=== PATIENT | male | born 1945 | race Caucasian/White ===

== ENCOUNTER 2024-04-11 18:16 | Inpatient (IN) | payer OTHER, SELFPAY ==
[2024-04-11] VITALS (8 sets, daily range): BP systolic 95–123; BP diastolic 49–60; BMI 16.6; BMI 16.9
[2024-04-11 13:10] LABS: Glucose - Point of Care > 600 mg/dl (70-99)
[2024-04-11 13:36] LABS: % Basophils 0.3 % (0-2); % Eosinophils 0.2 % (0-6); % Immature Granulocytes 0.3 % (0-0.5); % Lymphocytes 10.4 % (20.5-51.1); % Monocytes 3.9 % (1.7-9.3); % Neutrophils 84.9 % (42.2-75.2); Absolute Lymphocytes 1.1 10^3/uL (1.2-3.4); Absolute Monocytes 0.4 10^3/uL (0.1-0.6); Absolute Neutrophils 8.7 10^3/uL (1.4-6.5); Hematocrit 38.1 % (39.0-52.0); Mean Corp Hgb Conc. 34.1 g/dL (33.0-37.0); Mean Corpuscular Hgb 32.8 pg (27.0-31.0); Mean Corpuscular Volume 96.2 fL (80.0-94.0); Mean Platelet Volume 9.5 fL (7.4-10.4); Nucleated Red Blood Cells % 0 % (-); Platelet Count 316 10^3/uL (130-400); Red Blood Cell Count 3.96 10^6/uL (4.70-6.10); Red Cell Dist. Width 12.2 % (11.5-14.5); White Blood Cell Count 10.2 10^3/uL (4.8-10.8)
[2024-04-11 13:47] LABS: ALT (SGPT) 27 U/L (0-50); AST (SGOT) 22 U/L (17-59); Albumin 4.3 g/dl (3.5-5.0); Alkaline Phosphatase 130 U/L (38-126); Blood Urea Nitrogen 21 mg/dl (9-20); Calcium 9.5 mg/dl (8.4-10.2); Carbon Dioxide 25 mmol/L (22-30); Chloride 93 mmol/L (98-107); Potassium 5.7 mmol/L (3.5-5.1); Sodium 131 mmol/L (135-145); Total Bilirubin 0.5 mg/dl (0.2-1.3); Total Protein 6.7 g/dl (6.3-8.2); eGFR > 60.00
[2024-04-11 14:04] LABS: Glucose 651 mg/dl (70-99)
[2024-04-11] MEDS: NSS 1000 IV ×3 (14:13→22:21)
[2024-04-11] MEDS: NOVOLIN R 10 UNITS IV (14:16)
[2024-04-11 14:34] LABS: Urine Albumin Negative (Neg - Trace); Urine Bilirubin Negative (Negative); Urine Character Clear (Clear); Urine Color Yellow; Urine Glucose 3+ (Negative); Urine Ketone 1+ (Negative); Urine Leukocyte Negative (Negative); Urine Nitrite Negative (Negative); Urine Occult Blood Negative (Negative); Urine Urobilinogen Negative (Neg - 1+)
--- NOTE | 2024-04-11 14:34 | PHANOTE ---
med rec note- [facility] [place] [facility], [facility] only fills 2/3 of patient medication. family in room does not have medication list. waiting 30 minutes [facility] did not get a hold of anybody. will
call back later
[2024-04-11 14:45] LABS: B-Hydroxybutyrate 0.84 mmol/L (0.02-0.27)
[2024-04-11 14:56] LABS: Venous Blood Gas B.E. -1.4 mmol/L (-4 to +4); Venous Blood Gas O2 Sat % 75.9 %; Venous Blood Gas pCO2 54 mmHg (35-48); Venous Blood Gas pH 7.29 (7.32-7.43); Venous Blood Gas pO2 45 mmHg (30-50)
[2024-04-11 15:22] LABS: Glucose - Point of Care 493 mg/dl (70-99)
[2024-04-11 15:56] LABS: Glucose 474 mg/dl (70-99)
--- NOTE | 2024-04-11 16:05 | ED.GENMED ---
History of Present Illness
General
Chief Complaint: Blood Sugar Problem
Source: patient and family
Exam Limitations: none
Time Seen by Provider: 04/11/24 13:53
Nursing documentation reviewed up to this point in time: agreed with
History of Present Illness
History of Present Illness:
78-year-old male presenting to the emergency department today with concerns of elevated sugar level that was seen as an outpatient with primary care doctor. Blood sugar read as high. He has had polydipsia polyuria some generalized fatigue. Has
not been checking his sugar levels recently. Does take oral meds as well as subcutaneous insulin.
Review of Systems
Review of Systems
Allergies reviewed?: Yes
All Other Systems: ROS reviewed and negative except as documented in HPI and ROS
Phy Exam
Physical Exam
Physical Exam:
GENERAL: Alert , in no apparent distress
EYE: pupils equal and reactive
NECK: Supple, no significant adenopathy.
ENT: o/p clr, mmm.
CARDIAC: Regular rate and rhythm .
LUNGS: Clear breath sounds bilaterally, no acute respiratory distress, no wheezes/rales/rhonchi
ABDOMEN: Soft, without focal tenderness, no r/g, no cvat
NEUROLOGICAL: Alert and oriented, no focal neuro deficits
SKIN: Warm and dry, skin intact.
MUSCULOSKELETAL: No edema, well perfused.
PSYCH: Normal and appropriate interaction.
Course
Orders/Labs/Results
Orders:
Orders
04/11/24 13:05
Accucheck Once [Bedside Glucose Monitoring-ONCE] As Directed
04/11/24 13:23
Complete Blood Count/With Diff Urgent
Comprehensive Metabolic Panel Urgent
04/11/24 13:53
0.9% Sodium Chloride 1000 ml [Nss] 1,000 ml IV BOLUS
04/11/24 14:11
Insulin Human Regular [Novolin R] 10 units IV NOW STA
04/11/24 14:14
B-Hydroxybutyrate Urgent
Venous Blood Gas Urgent
%Oxygen/Room Air: 98
04/11/24 14:24
Urinalysis Reflex To Culture Urgent
Date Specimen was Collected: 04/11/24
Time Specimen was Collected: 13:05
04/11/24 14:49
0.9% Sodium Chloride 1000 ml [Nss] 1,000 ml IV BOLUS
04/11/24 15:25
Glucose Urgent
Abnormal Lab Results
04/11/24 04/11/24 04/11/24
13:09 13:23 14:14
RBC 3.96 L 10^6/uL
(4.70-6.10)
Hct 38.1 L %
(39.0-52.0)
MCV 96.2 H fL
(80.0-94.0)
MCH 32.8 H pg
(27.0-31.0)
Absolute Neuts (auto) 8.7 H 10^3/uL
(1.4-6.5)
Absolute Lymphs (auto) 1.1 L 10^3/uL
(1.2-3.4)
Neutrophils % 84.9 H %
(42.2-75.2)
Lymphocytes % 10.4 L %
(20.5-51.1)
VBG pH 7.29 L
(7.32-7.43)
VBG pCO2 54 H mmHg
(35-48)
Sodium 131 L mmol/L
(135-145)
Potassium 5.7 H mmol/L
(3.5-5.1)
Chloride 93 L mmol/L
(98-107)
BUN 21 H mg/dl
(9-20)
Glucose 651 H* mg/dl
(70-99)
Alkaline Phosphatase 130 H U/L
(38-126)
Urine Ketones
Urine Glucose
B-Hydroxybutyrate 0.84 H mmol/L
(0.02-0.27)
POC Glucose > 600 H* mg/dl
(70-99)
04/11/24 04/11/24 04/11/24
14:24 15:20 15:25
RBC
Hct
MCV
MCH
Absolute Neuts (auto)
Absolute Lymphs (auto)
Neutrophils %
Lymphocytes %
VBG pH
VBG pCO2
Sodium
Potassium
Chloride
BUN
Glucose 474 H* mg/dl
(70-99)
Alkaline Phosphatase
Urine Ketones 1+ A
(Negative)
Urine Glucose 3+ A
(Negative)
B-Hydroxybutyrate
POC Glucose 493 H* mg/dl
(70-99)
04/11/24 13:23
04/11/24 15:25
Vital Signs
Initial and Last Documented VS:
Initial Vital Signs
Temp Pulse Resp BP Pulse Ox
98.5 F 85 16 102/56 98
04/11/24 13:07 04/11/24 13:07 04/11/24 13:07 04/11/24 13:07 04/11/24 13:07
Last Documented Vital Signs
Temp Pulse Resp BP Pulse Ox
98.5 F 74 18 102/56 96
04/11/24 13:07 04/11/24 14:45 04/11/24 14:48 04/11/24 13:07 04/11/24 14:45
MDM/Problems Addressed
MDM/Problems Addressed:
78-year-old male presenting to the emergency department today with concerns of elevated sugar level. Does have a history of diabetes. Has not been checking sugars routinely and apparently is somewhat noncompliant with medication regimen. Here the
sugar level is above 600 on initial stick, the chemistry showing initial sugar level in the 600s. Patient with an altered beta hydroxybutyrate and slightly low pH concerning the patient was given insulin as well as 2 L of fluid. Some improvement
of the sugar level into the 490s plan to admit for monitoring considering slightly acidotic here. Otherwise stable.
*Critical Care Note
Total Time (30-74mins, 75-104mins- exclusive of procedures): Not Applicable
ED Attending Note
-
Portions of this chart may have been created with voice recognition software.� Occasional wrong word or��sound alike� substitutions may have occurred due to the inherent limitations of voice recognition software.
Discharge Plan
Departure
Patient Disposition: Admit
Date of Disposition: 04/11/24
Time of Disposition: 16:07
Admit to: Telemetry
Admit to doctor: Samsony
Presentation/result/management discussed w/ accepting MD/DO: Hospitalist
Patient with high blood pressure during this ER visit?: No
Condition: Good
Covid-19: Not Applicable
Discharge Problem:
Hyperglycemia
Prescriptions:
No Action
lisinopril 20 mg Tablet
20 mg PO DAILY
glimepiride 2 mg Tablet
2 mg PO DAILY
simvastatin [Zocor] 20 mg Tablet
20 mg PO QPM
sertraline 25 mg Tablet
25 mg PO DAILY
omeprazole 20 mg Tablet,Delayed Release (Dr/Ec)
20 mg PO DAILY
Jardiance 25 mg Tablet
25 mg PO DAILY
Theragen Tablet
1 tab PO DAILY
aspirin 81 mg Tablet,Delayed Release (Dr/Ec)
81 mg PO DAILY
Referrals:
Rikki Martinez PA-C [Family Provider] -
Interventions
Interventions:
*Risk Screen - Suicide Last Done: 04/11/24 14:10
*General Assessment Last Done: 04/11/24 14:10
*Neglect/Abuse Screening Last Done: 04/11/24 14:10
ED- Fall Risk Assessment Last Done: 04/11/24 14:13
*ED COVID-19 Vaccine History Last Done: 04/11/24 14:10
ED- Neurological Assessment Last Done: 04/11/24 14:11
Discharge Date and Time
Print Language: [place]
[2024-04-11 16:28] LABS: Glucose - Point of Care 350 mg/dl (70-99)
--- NOTE | 2024-04-11 16:42 | W.PN.UPDATE ---
Update Note
Progress Note Update
I personally performed a history and physical exam of the patient and discussed management with the resident. I reviewed the resident's note and agree with the documented findings and plan of care HPI/CC except for Changes in my documentation
78-year-old male presented with elevated blood sugar. He was seen by PCP he had polyuria and polydipsia. He has not been checking his blood sugars as outpatient.
CVS: S1-S2 normal
Chest: CTA B/L
Abdomen: Soft, NT
Extremities: No edema, No ulcers
# Hyperglycemia
Was on Glimepiride , Jardiance as OP- Hold Glimeperide
Likely hyperosmolar hyperglycemic syndrome
Mildly elevated beta hydroxybutyrate likely secondary to this
Insulin gtt
Follow sugars with hourly accu checks
Check Hb A1C
Dietary eval
#Spurious Hyponatremia-Will correct with Correction of sugars
#Hyperkalemia -Due to Hyperglycemia- repeat
#HTN- Continue Lisinopril
#Depression- Zoloft to be continued
#Hyperlipidemia- Continue Statin
#Possible Cognitive Dysfunction- Needs OP eval
#Severe hearing impairment
#Active smoker Cessation counselling
#DVT Prophylaxis- Lovenox
#CODE STATUS- DNR per D/W and son at bed side
D/W and son at bed side
--- NOTE | 2024-04-11 17:57 | HPS.HSE ---
Family Physician
-
Family Physician: Rikki Martinez
Chief Complaint
-
Hyperglycemia/HHS
History of Present Illness
Troy Diggs is a 78 yo male with a past medical history of Type II Diabetes Mellitus and Hypertension who presented to the ED after an outpatient blood test revealed an elevated blood glucose of 584.
Patient had blood work done for supervisor lime and the PCP noticed the blood glucose was 584 and informed the patient to come to the emergency department. The patient states that he is very thirsty, very hungry, and has to use the bathroom often.
and son who were at bedside endorse the same. The patient states that these symptoms have been presented for months. He endorses compliance with oral medication and SC Lantus of 22U at night. The patient snacks frequently. He is not
experiencing any nausea, vomiting, abdominal pain, shortness of breath, chest pain, numbness/tingling of the extremities.
and son also endorse a two year history of mild behavioral changes. The patient's memory is intact, but he does not seem to 'care' as much as before; 'he is not my partner anymore.'
They follow regularly with an Traveling Auditor, a Pad Hand (due for yearly check up), and an Branch Office Administrator (patient is waiting for BL Cataract surgery). PCP is Dr. Rikki Martinez.
PMHx: as above
Allergies: None
Medication: Aspirin, Jardiance, Glimepiride, Lantus 22U HS, Lisinopril, omeprazole, simvastatin, Sertraline (mood swings)
Surgical History: none
Social History: Lives at home with and son. He has a 20 pack year smoking history and has not had a drink in over 20 years. He does not use illicit drugs.
ROS: as above
Medical History
Past Medical History
Past Medical History: Reports HTN and IDDM
Past Surgical History: Reports None
Social History
Unable to obtain full social history at this time due to: Other (Hearing impaired)
Tobacco: Smoker
Alcohol: Former (Last drink 20 years ago)
Drug: None
Personal:
Living: With Family
Employment: Not Employed (Stopped working 2 years ago)
Family History
Family History: Not pertinent
Allergies / Home Medications
Allergies reflects when Allergies were last updated in [employer].
Home Medications with original date entered in [employer]
Allergy/Medication List:
None
Review of Systems
-
History Source: Patient and Family
A 12 point ROS was completed and negative except as noted: Yes
Constitutional: Reports Weight Loss
EENT: Reports No Symptoms
Respiratory: Reports No Symptoms
Cardiac: Reports No Symptoms
Abdomen/GI: Reports No Symptoms
: Reports No Symptoms
Musculoskeletal: Reports No Symptoms
Skin: Reports No Symptoms
Neurological: Reports No Symptoms
Endocrine: Reports Polyuria, Polydipsia and Other (Polyphagia)
Hematologic/Lymphatic: Reports No Symptoms
Psych: Reports No Symptoms
Physical Exam
Vital Signs
Vital Signs
Temp Pulse Resp BP Pulse Ox
98.5 F 74 18 102/56 96
04/11/24 13:07 04/11/24 14:45 04/11/24 14:48 04/11/24 13:07 04/11/24 14:45
Physical Exam
General: Well Developed, Well Nourished, No Apparent Distress and Comfortable
HEENT: NormoCephalic, Anicteric, Moist mucous membranes, PERRLA and [place] Conjunctivae
Respiratory: Clear
Cardiac: S1/S2, Regular Rhythm and Murmur (Systolic murmur w/o radiation to the carotids)
Breast: N/A
GI: Soft, Non Tender, Non Distended and Normal Bowel Sounds
Genito-urinary: Deferred by me
Musculoskeletal: No Clubbing, No Cyanosis, No Edema and Normal Gait & Station
Neuro: Awake, Alert, Oriented, No Motor Deficits and No Sensory Deficits
Psych: Calm
Laboratory Results
-
04/11/24 13:23
04/11/24 15:25
Laboratory Results
Total Bilirubin 0.5 mg/dl (0.2-1.3) 04/11/24 13:23
AST 22 U/L (17-59) 04/11/24 13:23
ALT 27 U/L (0-50) 04/11/24 13:23
Alkaline Phosphatase 130 U/L (38-126) H 04/11/24 13:23
Impression/Plan
-
78 yo male with a past medical history of Insulin Dependent Type II Diabetes and Hypertension who presented to the ED after an outpatient blood test revealed elevated glucose
##HHS
#Insulin Dependent Type II Diabetes Mellitus
- Glucose >600 on admission, pH 7.29, mild ketonuria, B-hydroxybutyrate 0.84, Na 131 (corrected 137), K 5.7, polyuria, polydipsia, polyphagia
- Given 1L NS IVF & 10U Lantus; glucose reduced to 136
- Held Glimepiride, continued Jardiance, Simvastatin
- Will give another 10U novolog with dinner
#HTN
- Blood pressure stable on admission
- C/w Lisinopril
#Suspected Cognitive Dysfunction
#Mood swings?
- Patient's family at bedside, endorses some change in behavior/mood over the last 2 years.
- Patient is stable, cooperative, and non-aggressive
- Can consider out patient workup for possible early dementia
- Will continue home sertraline for now
#Dispo
Med/Surg
DVT PPx: Lovenox 40 SC
Diet: NPO until sugars stabilize
CODE STATUS: DNR
[2024-04-11 18:23] LABS: Glucose - Point of Care 136 mg/dl (70-99)
[2024-04-11 18:33] LABS: Vitamin B12 679 pg/ml (239-931)
[2024-04-11 20:24] LABS: Glucose - Point of Care 168 mg/dl (70-99)
[2024-04-11] MEDS: NOVOLOG FLEXPEN 4 UNITS SC (20:30)
[2024-04-11 21:54] LABS: Glucose - Point of Care 95 mg/dl (70-99)
[2024-04-11] MEDS: LIPITOR 10 MG PO (22:19)
[2024-04-11] MEDS: LOVENOX 40 MG SC (22:19)
[2024-04-11 22:24] LABS: TSH Reflex To Free T4 1.31 uIU/ml (0.47-4.68)
[2024-04-11 23:11] LABS: Magnesium 2.2 mg/dl (1.6-2.3)
[2024-04-11 23:11] LABS: Blood Urea Nitrogen 18 mg/dl (9-20); Calcium 9.3 mg/dl (8.4-10.2); Carbon Dioxide 24 mmol/L (22-30); Chloride 103 mmol/L (98-107); Estimated Creatinine Clearance 58 ml/min; Glucose 86 mg/dl (70-99); Potassium 4.4 mmol/L (3.5-5.1); Sodium 139 mmol/L (135-145); eGFR > 60.00
[2024-04-12 00:11] LABS: Glucose - Point of Care 178 mg/dl (70-99)
[2024-04-12 07:06] VITALS: BP 120/59
--- NOTE | 2024-04-12 07:23 | W.PN.HOSP.TC ---
Today's Communication/Plan
-
D/c home today on Basal insulin & new regimen of pre-meal insulin with instructions to family for administration, safety and compliance.
Assessment / Plan
Assessment / Plan
78 yo male with a past medical history of Insulin Dependent Type II Diabetes and Hypertension who presented to the ED after an outpatient blood test revealed elevated glucose
##HHS (resolved)
#Insulin Dependent Type II Diabetes Mellitus, uncontrolled
- Glucose >600 on admission, pH 7.29, mild ketonuria, B-hydroxybutyrate 0.84, Na 131 (corrected 137), K 5.7, polyuria, polydipsia, polyphagia
- Given 1L NS IVF & 10U Lantus; glucose reduced to 136
- Held Glimepiride, continued Jardiance, Simvastatin
- Patient is non-compliant with pre-meal sugar checks and often eats his meals before corrective insulin can be given. Pre-meal insulin needs seem to reside somewhere between 4 and 10U, though it is hard to ascertain precisely.
- Given A1C of 15.1%, sugars likely not well controlled at home (compliance vs. dosing). We will attempt to speak with the patient and his family about short acting insulin dosing before meals to help control sugars, but will likely keep on oral
regimen as patient seems to be more compliant with oral meds and the risk of critical hypoglycemia is lower.
#HTN
- Blood pressure stable on admission
- C/w Lisinopril
#Weight loss?
- TSH wnl. Likely secondary to uncontrolled diabetes, though other pathologic reasons should be investigated as an outpatient
- Due to patient's smoking history, a Low Dose CT scan is recommended, as well as other pertinent screening for the patient's age/history.
#Suspected Cognitive Dysfunction
#Mood swings?
- Patient's family at bedside, endorses some change in behavior/mood over the last 2 years.
- Patient is stable, cooperative, and non-aggressive
- Can consider out patient workup for possible early dementia
- Will continue home sertraline for now
#Dispo
Med/Surg
DVT PPx: Lovenox 40 SC
Diet: NPO until sugars stabilize
CODE STATUS: DNR
Anticipated Discharge: Today
Subjective/Interval History
-
Seen in the AM. The patient had no overnight events and has no acute complaints.
Objective Data
-
Labs:
Laboratory Results
04/11/24
22:42
Sodium 139 D
Potassium 4.4
Chloride 103
Carbon Dioxide 24
BUN 18
Creatinine 0.8
Glucose 86
Calcium 9.3
Vital Signs:
Vital Signs
Temp Pulse Resp BP Pulse Ox
97.6 F 83 18 123/60 99
04/11/24 23:02 04/11/24 23:02 04/11/24 23:02 04/11/24 23:02 04/11/24 23:02
Review of Systems
-
History Source: Patient
All other systems: Reviewed and negative
Physical Exam
-
General: Well Developed, Well Nourished, No Apparent Distress and Comfortable
HEENT: Normocephalic, Atraumatic, Moist Mucous Membranes, Anicteric and PERRLA
Respiratory: Clear to Auscultation
Cardiac: Regular Rhythm and S1/S2
Breast: N/A
GI: Soft, Nontender, Nondistended and Normal Bowel Sounds
Musculoskeletal: No Clubbing, No Cyanosis and No Edema
Neuro: Awake, Alert, Oriented and No Sensory Deficits (Hearing loss)
Psych: Calm
[2024-04-12 08:06] VITALS: BP 120/59
[2024-04-12 08:11] LABS: Glucose - Point of Care 206 mg/dl (70-99)
[2024-04-12] MEDS: NOVOLOG FLEXPEN-LOW RESISTANCE 2 UNITS SC (08:45)
[2024-04-12] MEDS: ZOLOFT 25 MG PO (08:46)
[2024-04-12] MEDS: FARXIGA 10 MG PO (08:46)
[2024-04-12] MEDS: ASPIR LOW (ENTERIC COATED) 81 MG PO (08:46)
[2024-04-12] MEDS: PROTONIX 40 MG PO (08:46)
[2024-04-12 09:40] LABS: Glycohemoglobin (HgbA1c) 15.1 % (4.0-5.6)
[2024-04-12 11:24] LABS: Glucose - Point of Care 322 mg/dl (70-99)
[2024-04-12] MEDS: NOVOLOG FLEXPEN-LOW RESISTANCE 4 UNITS SC (11:50)
[2024-04-12] MEDS: NOVOLOG FLEXPEN 8 UNITS SC (12:16)
--- NOTE | 2024-04-12 14:36 | W.PN.UPDATE ---
Update Note
Progress Note Update
I personally performed a history and physical exam of the patient and discussed management with the resident. I reviewed the resident's note and agree with the documented findings and plan of care HPI/CC except for Changes in my documentation
78-year-old male presented with elevated blood sugar. He was seen by PCP he had polyuria and polydipsia. He has not been checking his blood sugars as outpatient.
Pleasant. Patient is fully dressed and ambulating to the elevators wanting to go home, per nursing
No complaints
# Hyperglycemia ,HHS
Was on Glimepiride , Jardiance as OP- Hold Glimepiride
Patient did not need insulin drip. His sugars corrected with IV insulin. He was started on basal bolus.
Unfortunately he had breakfast before fasting sugars could be checked. He does not wait to call before he consumes a meal therefore sugars are not Premeal.
Diabetic education and dietary evaluation
Patient was given a glucometer.
Per he has a continuous glucose monitor at home, but she is planning to make him check his sugars 3 times a day before meals so that he can give himself insulin.
I had a very detailed conversation with her to keep the Lantus insulin pen away so that he is not confusing it with the NovoLog pen and taking that premeals.
Patient seems to be understanding of that also.
Discussed with ,he has an appointment with [facility] [place] end[facility]ology office on April 15 at 11 AM. Advised to keep a log of his sugars and follow-up to see if any adjustments need to be made.
#Spurious Hyponatremia-corrected.
#Hyperkalemia -resolved.
#HTN- Continue Lisinopril
#Depression- Zoloft to be continued
#Hyperlipidemia- Continue Statin
#Possible Cognitive Dysfunction- Needs OP eval with neuro psyche
#Severe hearing impairment
#Active smoker Cessation counselling
#DVT Prophylaxis- Lovenox
#CODE STATUS- DNR per D/W and son at bed side
D/W on the phone and updated.
Discussed with nursing at bedside
We will provide him with lancets, test strips for the glucometer that he has here.
states that he has a CGM-likely from endocrinology office
Will wait for the next blood sugar and will discharge today.
Discharge time more than 39 min
--- NOTE | 2024-04-12 14:55 | PN.DE ---
Diabetes Education
- -
Met with Mr. Diggs this morning, at bedside for glucose monitor instructions.
Pt appears confused as he stated that he is ready for discharge and is all dressed sitting up in bed.
He states that he has a glucose monitor at home that is 7 years old and he has been testing his blood sugars as needed.
He continues to say that he is going directly to his Endo's office- [facility] across the [address] (though he has no appointment) for a script for a CGM.
Provided pt with a new Contour Next Ez glucometer. Reviewed proper testing technique for obtaining a blood glucose, testing pattern of twice a day and he verbalized understanding.
Pt will need RX for test strips and lancets for the Contour Next Ez glucometer, testing 2x/day at discharge.
Up date provided to pt's nurse.
[2024-04-12 15:03] LABS: Glucose - Point of Care 287 mg/dl (70-99)
[2024-04-12 15:12] VITALS: BP 136/66
[2024-04-12 15:22] VITALS: BMI 16.9
[2024-04-12] MEDS: NOVOLOG FLEXPEN 5 UNITS SC (16:10)
[2024-04-12] MEDS: NOVOLOG FLEXPEN-LOW RESISTANCE 3 UNITS SC (16:11)
--- NOTE | 2024-04-12 16:21 | PTOTSP ---
Patient mobilizing independently from EOB, ambulating in hallway and performing elevations without assistance and no AD.
Does not demonstrate continued need for skilled therapy and will be discharged. If needs change, please re-consult.
[2024-04-12] MEDS: LIPITOR 10 MG PO (17:06)
--- NOTE | 2024-04-12 17:52 | W.DCSUMMARY ---
Discharge Summary
Discharge Data
Date of Admission: 04/11/24
Date of Discharge: 04/12/24
-
Pending Results: No
Hospital Course
Discharging Physician : Dr. Fabien Whatley, Dr. Roly Flores
Disposition : Home
Primary care physician : Rikki Martinez PA-C
Principal Discharge diagnosis : Hyperglycemia Hyperosmolar State, Uncontrolled Insulin Dependent Type II Diabetes Mellitus, Hyponatremia, Hyperkalemia,
Chronic Discharge diagnosis : Hyperlipidemia, hypertension, depression
Hospital Course :
Troy Diggs presented to the [facility] on 04/11/2024 after he had gotten regular blood work for his Endocrinology appointment which revealed an elevated blood glucose of 584. On arrival to the ED he was stable and repeat blood work revealed elevated
blood glucose of >600, hyponatremia, and hyperkalemia. He met criteria for HHS and was given IV fluids along with 10U of insulin and was kept NPO, after which his blood glucose quickly corrected. He was admitted for further observation and
management of his hyper osmolar state. By the evening his sugars were <200 and he was given short acting insulin with dinner. His glucose was managed with a low dose sliding scale and his basal regimen of 22U Lantus. An A1c came back severely
elevated at 15.1%, prompting a discussion about insulin compliance and dietary modification. The decision was made to add short acting insulin of 8U with meals, on top of his 22U of basal insulin. His glimepiride was discontinued to reduce risk of
hyperglycemia, but his Jardiance was continued. He was discharged with a prescription for 8U Insulin Novolog, as well as refills for pen needles, test strips, and lancets.
Other home medications were continued during the visit with no other changes.
The patient's family endorsed some concerns for behavioral changes for which we also recommend outpatient work up and neuropsychiatric evaluation. There were several instances in which the patient attempted to leave the hospital, but was
redirectable and at no point was he ever violent. He also did not listen when asked to contact the nurses before eating so that his glucose could be checked. These instances seem consistent with concerns from the family and the discussion was had
with them on arrival and at the time of discharge to bring these concerns to his primary care provider. In addition, the family endorses weight loss over the last few months. Though this could be caused by his uncontrolled diabetes, given a
significant smoking history, we also recommend bringing this concern to the primary care provider. The patient would likely benefit from low Dose CT scan screening (if he has not had one already) and a further workup.
Important imaging findings :
N/A
Procedure findings :
N/A
Discharge Plan
-
Patient Disposition: Home (Routine Discharge)
Discharge Diagnosis/Procedures: Uncontrolled Diabetes Mellitus
Diet: Diabetic, Carb Controlled
Activity: No restrictions
Driving Restrictions: As prior to admission
Bathing Restrictions: None
Referrals:
Rikki Martinez PA-C [Family Provider] - in less than 1 week
[facility] PA-C [Non-Admitting Privileges] - 04/15/24 11:00 am
Additional Discharge Medication Instructions: Stop Glimepiride. Continue Jardiance. Blood sugar checks before meals, three times per day.
Prescriptions:
New
(DME) Contour Next Test Strips Strip
Qty: 200 0RF
Rx Instructions:
As Directed
(DME) pen needle, diabetic [BD Ultra-Fine [place] Pen Needle] 32 gauge x 5/32' Needle
Qty: 200 0RF
Rx Instructions:
As Directed
(DME) lancets [Color Lancets] 21 gauge Misc
Qty: 200 0RF
Rx Instructions:
As Directed
insulin aspart U-100 100 unit/mL (3 mL) Insulin Pen
8 unit SC AC Qty: 15 0RF
insulin glargine [Lantus Solostar U-100 Insulin] 100 unit/mL (3 mL) insulin pen
22 unit SC QPM Qty: 15 0RF
Continued
lisinopril 20 mg Tablet
20 mg PO DAILY
simvastatin [Zocor] 20 mg Tablet
20 mg PO QPM
sertraline 25 mg Tablet
25 mg PO DAILY
omeprazole 20 mg Tablet,Delayed Release (Dr/Ec)
20 mg PO DAILY
Jardiance 25 mg Tablet
25 mg PO DAILY
therapeutic multivitamin Tablet
1 tab PO DAILY
aspirin 81 mg Tablet,Delayed Release (Dr/Ec)
81 mg PO DAILY
Discontinued
glimepiride 2 mg Tablet
2 mg PO DAILY
Discharge Orders:
Discharge Patient (As Directed); Ordered 04/12/24
Ordered By: Fabien Whatley
Discharge Date and Time
Discharge Date/Time: 04/12/24 17:18
Print Language: PRYDEINIG
--- NOTE | 2024-04-15 12:56 | PN.CDI ---
CDI
- -
CDI:
Physician Documentation Request
Admit Date: 04/11/24 18:16
Dear Doctor Mark,
Please review the following and provide your response in the progress notes.
Clinical Indicators:
- 04/12 [facility] note indicates moderate protein calorie malnutrition
- Moderate fat loss over rib cage, orbital
- Moderate muscle loss over calf, quads, clavicle, temporal
Based on the above information and your assessment, which of the following most accurately represents the patient's nutritional status?
Moderate protein calorie malnutrition
Other
[place] Criteria ([facility] 2017)
2 or more criteria must be present for either
non severe or severe malnutrition
Note that the criteria differs related to the
presence of an acute or chronic illness
Acute Illness Chronic Illness
Energy Intake Non Severe: <75% for >7 days Non Severe: <75% for >1 month
Severe: <50% for >5 days Severe: <75% for >1 month
Weight Loss Non Severe: 1-2% over 1 week Non Severe: 5% over 1 month
5% over 1 month 7.5% over 3 months
7.5% over 3 months 10% over 6 months
1 year N/A 20% over 1 year
Severe: >2% over 1 week Severe: >5% over 1 month
>5% over 1 month >7.5% over 3 months
>7.5% over 3 months >10% over 6 months
1 year N/A >20% over 1 year
Body Fat Non Severe: Mild Decrease Non Severe: Mild Loss
Severe: Moderate Decrease Severe: Severe Loss
Muscle Mass Non Severe: Mild Decrease Non Severe: Mild Loss
Severe: Moderate Decrease Severe: Severe Loss
Fluid Accumulation Non Severe: Mild Accumulation Non Severe: Mild Accumulation
Severe: Moderate to severe Severe: Moderate to severe
accumulation accumulation
Reduced Sailor Strength Non Severe: N/A Non Severe: N/A
Severe: Measurably reduced Severe: Measurably reduced
Additional criteria that can be used to Determine if Mild or Moderate Malnutrition ([employer] Manual 2018)
Mild Moderate Severe
Albumin gm/dl <3.0 gm/dl <2.5 gm/dl <2.0 gm/dl
Pre Albumin mg/dl <15 gm/dl <10 mg/dl <5.0 mg/dl
BMI <18.5 <17 <16
Use of terms such as suspected, likely, concern for, or probable (associated with a specific diagnosis that is being evaluated, monitored, or treated as if it exists) are acceptable and can be coded in the inpatient setting, when documented at the
time of discharge.
Thank you,
Simon Oden RN
CDI Specialist
Please use your independent medical judgment in providing your response.
== END 2024-04-12 17:18 | disposition home or self-care (01) | DRG 638 ==
LOC: 4 WEST ACU 18:16
PROVIDERS: Physician Assistant; Registered Nurse; Student in an Organized Health Care Education/Training Program; ADMITTING PHYSICIAN Hospitalist; EMERGENCY PHYSICIAN Emergency Medicine; FAMILY PHYSICIAN Physician Assistant Medical
DX: E11.65 Type 2 diabetes mellitus with hyperglycemia (principal); E87.1 Hypo-osmolality and hyponatremia; R53.83 Other fatigue; I10 Essential (primary) hypertension; E87.5 Hyperkalemia; F32.A Depression, unspecified; H91.90 Unspecified hearing loss, unspecified ear; E78.5 Hyperlipidemia, unspecified; F17.200 Nicotine dependence, unspecified, uncomplicated; R63.2 Polyphagia; F03.90 Unspecified dementia, unspecified severity, without behavioral disturbance, psychotic disturbance, mood disturbance, and anxiety; R82.4 Acetonuria; Z66 Do not resuscitate; Z79.4 Long term (current) use of insulin; Z91.148 Patient's other noncompliance with medication regimen for other reason; Z79.82 Long term (current) use of aspirin; Z79.84 Long term (current) use of oral hypoglycemic drugs
CPT/HCPCS: 80048; 80053; 81003; 82010; 82607; 82805; 82947; 82962; 83036; 83735; 84443; 85025; 96361; 96374; 97162; 99285